=== PATIENT | female | born 2005 | race Caucasian/White ===

== ENCOUNTER 2025-03-21 18:17 | Emergency (ER) | payer BC ==
[2025-03-21] MEDS: Ketorolac 30 MG/ML SDV IM ONE (20:15)
== END 2025-03-21 20:25 | disposition home or self-care (01) ==
LOC: MW.ED 18:17
DX: S22.049A Unspecified fracture of fourth thoracic vertebra, initial encounter for closed fracture (principal); Z79.899 Other long term (current) drug therapy; W22.8XXA Striking against or struck by other objects, initial encounter; Y93.89 Activity, other specified; Y99.0 Civilian activity done for income or pay
CPT/HCPCS: 72128; 96372; 99283; A9270; J1885; J8540